=== PATIENT | female | born 1950 | race Caucasian/White ===

== ENCOUNTER 2016-06-14 01:34 | Emergency (ER) | payer BC ==
[~2016-06-14] VITALS: Ht 162.6 cm; Wt 109.0 kg
[2016-06-14 01:42] VITALS: BP 116/66; PULSE 93; RESP 18; TEMP 97.4; O2SAT 97
[2016-06-14] MEDS ORDERED: ADVA500A INH (02:11)
[2016-06-14] MEDS ORDERED: MONT10TA2 PO (02:11)
[2016-06-14] MEDS ORDERED: LEVO125T4 PO (02:12)
[2016-06-14] MEDS ORDERED: ZYRT10CA PO (02:12)
[2016-06-14] MEDS ORDERED: PRED5TAB PO (02:13)
[2016-06-14] MEDS ORDERED: ZITH250T PO (02:13)
[2016-06-14 03:00] VITALS: BP 124/70; PULSE 83; RESP 18; O2SAT 96
--- NOTE | 2016-06-14 03:54 | PD ---
HPI Chief Complaint: Cold / Flu Symptoms Time Seen by Provider: 03:46 Travel History International Travel<30 days: No Contact w/Intl Traveler<30days: No Traveled to known affect area: No History of Present Illness HPI The patient is a 66-year-old female that complains of nausea, vomiting and diarrhea since 7:45 PM. She called an ambulance and they brought her here to emergency department. [facility] personnel could not start an IV. She denies vomiting any blood or any blood in the stool. She denies any fever. She has had a cholecystectomy but still has her appendix. PFSH Past Medical History Asthma: Yes Diminished Hearing: No Tetanus Vaccination: > 5 Years Influenza Vaccination: No Menopausal: Yes : 2 Para: 2 Past Surgical History Section: Yes Cholecystectomy: Yes Other Surgery: Yes (Polyp removal from nose ) Social History Alcohol Use: No Tobacco Use: No Substance Use: No Allergies-Medications (Allergen,Severity, Reaction): Coded Allergies: Iodine (Verified Allergy, Severe, Swelling, 06/14/16) Sulfa (Verified Allergy, Intermediate, Itching, 06/14/16) Uncoded Allergies: Wheat Gluten (Allergy, Intermediate, INFLAMMATION OF THE GUT , 06/14/16) Reported Meds & Prescriptions Reported Meds & Active Scripts Active Phenergan (Promethazine HCl) 25 Mg Tab 25 Mg PO Q6H PRN Reported Prednisone 5 Mg Tab 4 Mg PO DAILY Zithromax (Azithromycin) 250 Mg Tab 250 Mg PO DAILY Levothyroxine (Levothyroxine Sodium) 125 Mcg Tab 125 Mcg PO DAILY Zyrtec Allergy (Cetirizine HCl) 10 Mg Cap 10 Mg PO DAILY Advair Diskus Inh (Fluticasone-Salmeterol Inh) 500-50 Mcg/Blist Aer 1 Puff INH DAILY Rinse mouth after use. Singulair (Montelukast Sodium) 10 Mg Tab 10 Mg PO HS Review of Systems Except as stated in HPI: all other systems reviewed are Neg Physical Exam Narrative GENERAL: The patient is alert, oriented 3, sleeping when I encountered the patient, in minimal apparent distress with her nausea. Her vital signs are normal. SKIN: Warm and dry. HEAD: Atraumatic. Normocephalic. EYES: Pupils equal and round. No scleral icterus. No injection or drainage. ENT: No nasal bleeding or discharge. Mucous membranes pink and slightly dry. The tympanic membranes are clear. NECK: Trachea midline. No JVD. There is no meningismus present. CARDIOVASCULAR: Regular rate and rhythm. No murmur appreciated. RESPIRATORY: No accessory muscle use. Clear to auscultation. Breath sounds equal bilaterally. GASTROINTESTINAL: Abdomen soft, non-tender, nondistended. Hepatic and splenic margins not palpable. MUSCULOSKELETAL: No obvious deformities. No clubbing. No cyanosis. No edema. NEUROLOGICAL: Awake and alert. No obvious cranial nerve deficits. Motor grossly within normal limits. Normal speech. PSYCHIATRIC: Appropriate mood and affect; insight and judgment normal. Data Data Last Documented VS Vital Signs Date Time Temp Pulse Resp B/P Pulse Ox O2 Delivery O2 Flow Rate FiO2 06/14/16 04:17 89 18 119/52 95 Room Air 06/14/16 01:42 97.4 Orders Influenzae A/B Antigen (06/14/16 02:53) Basic Metabolic Panel (Bmp) (06/14/16 03:54) Complete Blood Count With Diff (06/14/16 03:54) Lipase (06/14/16 03:54) Iv Access Insert/Monitor (06/14/16 03:54) Ecg Monitoring (06/14/16 03:54) Oximetry (06/14/16 03:54) Ondansetron Inj (Zofran Inj) (06/14/16 04:00) Sodium Chloride 0.9% Flush (Ns Flush) (06/14/16 04:00) Sodium Chlor 0.9% 1000 Ml Inj (Ns 1000 M (06/14/16 04:00) Labs Laboratory Tests Test 06/14/16 04:10 White Blood Count 10.8 TH/MM3 Red Blood Count 5.22 MIL/MM3 Hemoglobin 14.8 GM/DL Hematocrit 45.8 % Mean Corpuscular Volume 87.7 FL Mean Corpuscular Hemoglobin 28.4 PG Mean Corpuscular Hemoglobin 32.4 % Concent Red Cell Distribution Width 13.9 % Platelet Count 229 TH/MM3 Mean Platelet Volume 8.4 FL Neutrophils (%) (Auto) 64.7 % Lymphocytes (%) (Auto) 15.1 % Monocytes (%) (Auto) 12.6 % Eosinophils (%) (Auto) 5.4 % Basophils (%) (Auto) 2.2 % Neutrophils # (Auto) 7.0 TH/MM3 Lymphocytes # (Auto) 1.6 TH/MM3 Monocytes # (Auto) 1.4 TH/MM3 Eosinophils # (Auto) 0.6 TH/MM3 Basophils # (Auto) 0.2 TH/MM3 CBC Comment DIFF FINAL Differential Comment Sodium Level 146 MEQ/L Potassium Level 3.5 MEQ/L Chloride Level 111 MEQ/L Carbon Dioxide Level 26.0 MEQ/L Anion Gap 9 MEQ/L Blood Urea Nitrogen 25 MG/DL Creatinine 1.10 MG/DL Estimat Glomerular Filtration 50 ML/MIN Rate Random Glucose 108 MG/DL Calcium Level 8.7 MG/DL Lipase 111 U/L [facility] Medical Decision Making Medical Screen Exam Complete: Yes Emergency Medical Condition: Yes Medical Record Reviewed: Yes Interpretation(s) The CBC is normal except for 12.6% mononuclear cells. The basic metabolic profile shows a sodium of 146, BUN of 25, creatinine 1.1 with GFR 50 but is otherwise unremarkable. The lipase is normal. The flu antigen is negative for flu a and flu B antigen. Differential Diagnosis Viral gastroenteritis, colitis, appendicitis, renal insufficiency, dehydration, hypo-/hyperglycemia, electrolyte disorder, cholecystitis Narrative Course The patient has a viral gastroenteritis. She also has moderate dehydration. Her BUN is elevated and her sodium is increased, likely from hemoconcentration. The normal white count suggestive virus. It is now 0444 and the patient is successfully drinking Gatorade and is not nauseated. Plan: Patient be given Phenergan for nausea. She has been taking Zithromax and I am reluctant to give her another medication that might prolong the QT interval such as Zofran. Additional Instructions: As we discussed, take the Phenergan every 6 hours as necessary to avoid nausea. It may be that you need to take the Phenergan every 4 hours to avoid nausea. Drink plenty of liquids and stay well-hydrated. Follow-up with your primary care physician this week. Do not drink alcohol or drive on the Phenergan as it can make you dizzy and sleepy similar to Benadryl. Med/Other Pt SpecificInfo: Prescription(s) given Scripts Promethazine (Phenergan)25 Mg Tab25 Mg PO Q6H PRN (Nausea/Vomiting) #30 TAB Ref 0 Prov:Aidan Paredes MD 06/14/16 Disposition: DISCHARGE HOME Condition: Stable Aidan Paredes MD Jun 14, 2016 03:54
[2016-06-14 04:00] VITALS: BP 119/70; PULSE 85; RESP 18; O2SAT 95
[2016-06-14] MEDS ORDERED: SODIUM CHLORIDE 0.9% FLUSH 5 ML FLUSH IVF PRN (04:00)
[2016-06-14] MEDS ORDERED: ONDANSETRON HCL 4 MG/2 ML VIAL IVP ONE (04:00)
[2016-06-14] MEDS: SODIUM CHLOR 0.9% 1000 ML INJ 1,000 ML IV SCH ×2 (04:10→05:00)
[2016-06-14 04:17] VITALS: BP 119/52; PULSE 89; RESP 18; O2SAT 95
[2016-06-14 04:19] LABS: BASOPHIL # 0.2 TH/MM3 (0-0.2); BASOPHIL % 2.2 % (0.0-2.0); EOSINOPHIL # 0.6 TH/MM3 (0-0.4); EOSINOPHIL % 5.4 % (0.0-4.0); HEMATOCRIT 45.8 % (35.0-46.0); LYMPH % 15.1 % (9.0-44.0); LYMPHOCYTE # 1.6 TH/MM3 (1.0-4.8); MEAN CELL VOLUME 87.7 FL (80.0-100.0); MEAN CORPUSCULAR HEMOGLOBIN 28.4 PG (27.0-34.0); MEAN CORPUSCULAR HGB CONC 32.4 % (32.0-36.0); MONO % 12.6 % (0.0-8.0); NEUT % 64.7 % (16.0-70.0); PLATELET COUNT 229 TH/MM3 (150-450); RED BLOOD COUNT 5.22 MIL/MM3 (4.00-5.30); RED CELL DISTRIBUTION WIDTH 13.9 % (11.6-17.2); WHITE BLOOD COUNT 10.8 TH/MM3 (4.0-11.0)
[2016-06-14 04:25] LABS: POTASSIUM 3.5 MEQ/L (3.5-5.1)
[2016-06-14 04:26] LABS: HEMO FLAGS DIFF FINAL
[2016-06-14] MEDS ORDERED: PROM25TA5 PO (04:30)
== END 2016-06-14 05:15 | disposition home or self-care (01) ==
LOC: PHED 01:34
DX: A08.4 Viral intestinal infection, unspecified (principal); E86.0 Dehydration; Z87.09 Personal history of other diseases of the respiratory system
CPT/HCPCS: 80048; 83690; 85025; 87804; 96361; 96374; 99284; J2405; J7030